=== PATIENT | female | born 1945 | race Caucasian/White ===

== ENCOUNTER 2018-10-11 03:29 | Observation (INO) ==
[2018-10-11] MEDS ORDERED: *HR* Dextrose 50 % in Water (Syg) 50 ML SYRINGE IVP PRN (05:57)
[2018-10-11] MEDS ORDERED: Ondansetron 4 MG/2 ML VIAL IVP PRN (05:57)
[2018-10-11] MEDS ORDERED: Naloxone 0.4 MG/ML INJ IVP PRN (05:57)
[2018-10-11] MEDS ORDERED: Dextrose Gel 15 GM/37.5 ML TUBE PO PRN ×2 (05:57)
[2018-10-11] MEDS ORDERED: D5% in Water 1,000 ML IVC PRN (05:57)
--- NOTE | 2018-10-11 06:10 | Internal Med History&Physical ---
Date of Encounter: 10/11/18 Time of Encounter: 06:03 Internal Medicine - H&P: HPI Chief complaint: vomiting/diarrhea/dehydration Admitted From: Hospital to Hospital Transfer Plans for Post Hospital Care: Home History of present illness: Ms. Cuevas is a 72 year old female who presents in transfer from [facility] ER with complaints of protracted nausea, vomiting, and diarrhea, with subsequent dehydration. Symptoms started 2 days ago and have persisted without relief. She has been unable to eat or drink much fluids. She has been feeling weak and crampy. She therefore presented to the ER there were she was diagnosed with gastroenteritis and dehydration. Flu test was negative. Routine labs unremarkable except for hypokalemia. Transfer request was made to [facility] and patient was accepted in transfer from [facility]. Upon my assessment of the patient when she arrived, she looks dry and mildly ill-appearing. She denies any fevers, cough, congestion, sore throat, abdominal pain, dysuria, or hematuria. She has had multiple ill contacts at home with loved ones who had similar symptoms. She denies bloody stools or black stools. Past Med Surg Social Fam HX - Past Medical History Attestation: Yes The following information was validated with the patient. Source: patient, other Medical history: diabetes Psychiatric history: no psych history - Past Surgical History Surgical History: cholecystectomy, ELISABET/BSO - Social History Smoking Status: Never smoker Alcohol use: none Current living situation: Home, With Family Activity Level: Independent ambulation - Family History Mother Living Status: Hx Family GI Disorders: No Father History Unknown: Yes Living Status: - Constitutional Constitutional: no chills, no fever(s), no night sweats - EENT Eyes: no blurry vision, no change in vision Ears: no ear pain, no tinnitus Nose, mouth and throat: no nasal discharge, no sinus pressure, no sore throat - Cardiovascular Cardiovascular ROS IM: no chest pain, no dyspnea, no dyspnea on exertion - Respiratory Respiratory: no cough, no chest congestion, no change in phlegm color - Gastrointestinal Gastrointestinal: diarrhea, heartburn, nausea, vomiting, no abdominal pain, no cramping, no hematemesis, no hematochezia, no melena - Genitourinary Genitourinary: no dysuria, no flank pain, no hematuria - Musculoskeletal Musculoskeletal ROS IM: no atrophy, no muscle weakness, no myalgias - Integumentary Integumentary IM: no rash, no jaundice - Neurological Neurological ROS: no disequilibrium, no dizziness, no focal weakness, no frequent falls, no headache(s) - Psychiatric Psychiatric: no anxiety, no depression - Endocrine Endocrine IM: no polydipsia, no polyuria - Allergic/Immunologic Allergic/Immunologic: GI upset with certain foods, no wheezing - Constitutional Vitals: Temp Pulse Resp BP Pulse Ox 98.6 F 110 16 169/77 94 10/11/18 05:38 10/11/18 05:38 10/11/18 05:38 10/11/18 05:38 10/11/18 05:38 General appearance: Present: cooperative, A&O X 3, pleasant, no acute distress, answers questions appropriately Exam: looks moderately dehydrated - Head Head exam: Present: normal inspection - Eye Eye exam: Present: EOMI, PERRL. Absent: scleral icterus Pupils: Present: normal accommodation - ENT ENT exam: Present: mucous membranes dry, normal exam, normal oropharynx - Neck Neck exam general surgery: Present: full ROM, supple. Absent: tenderness, nuchal rigidity, thyromegaly - Respiratory Respiratory exam: Present: CTAB. Absent: rales, respiratory distress, stridor, wheezes - Cardiovascular Cardiovascular exam: Present: distant heart sounds, +S1, +S2. Absent: diastolic murmur, systolic murmur - GI/Abdominal GI/Abdominal exam: Present: normal bowel sounds, soft. Absent: guarding, hepatomegaly, mass, rebound, splenomegaly, tenderness - Extremities Exam Extremities exam: Present: full ROM, normal capillary refill, warm, radial pulses palpable and symmetrical. Absent: calf tenderness, pedal edema, tenderness - Back Exam Back exam: Present: normal inspection. Absent: CVA tenderness (L), CVA tenderness (R) - Neurological Exam Neurological exam: Present: alert, CN II-XII intact, oriented X3, no focal deficits - Psychiatric Psychiatric exam: Present: normal affect, normal mood - Skin Skin exam: Present: dry, intact, warm Internal Med - H&P Results - Labs Labs: I reviewed her labs from [facility] and include the following: Sodium 142 Potassium 3.2 Chloride 102 Carbon dioxide 26 BUN 24 Creatinine 0.85 Lipase 154 WBC 13.9 Hemoglobin 12.8 Hematocrit 39.2 Platelet count 266 Influenza A and B testing negative Head CT negative Abdominal CT negative - Assessment and plan (1) Gastroenteritis Current Visit: Yes Status: Acute Assessment and plan: 1. Will hydrate with IVF. 2. Anti-emetics PRN. 3. If diarrhea persists, will order stool sample. (2) Dehydration Current Visit: Yes Status: Acute Assessment and plan: 1. IVF hydration with oral fluid challenge. 2. Advance diet as tolerated. 3. Monitor electrolytes and correct as necessary. (3) Type 2 diabetes mellitus Current Visit: Yes Status: Chronic Assessment and plan: 1. Will order SSI. 2. Hold oral home meds. 3. Monitor glucose and adjust dosing as necessary. Qualifiers: Diabetes mellitus accountant budget insulin use: without accountant budget use Diabetes mellitus complication status: without complication Qualified Code(s): E11.9 - Type 2 diabetes mellitus without complications (4) DVT prophylaxis Current Visit: Yes Status: Acute Assessment and plan: 1. Heparin SQ.
[2018-10-11 06:44] LABS: Basophils % 0.1 %; Eosinophils % 0.1 %; Hemoglobin 12.6 g/dL (11.5-15.4); Immature Granulocytes % 0.3 % (0-4); Lymphocytes # 0.7 K/mcL (0.6-4.6); Lymphocytes % 5.2 %; Mean Corpuscular HGB Conc 33.2 g/dL (31.6-35.5); Mean Corpuscular Hemoglobin 28.9 pg (28.0-33.3); Mean Corpuscular Volume 87.2 fL (83.0-100.0); Mean Platelet Volume 11.3 fL (9.4-12.4); Monocytes # 0.7 K/mcL (0.0-1.3); Monocytes % 5.4 %; Platelet Count 251 K/mcL (140-400); Red Blood Count 4.36 M/mcL (3.82-4.97); Red Cell Distribution Width 15.2 % (11.5-14.5); Segmented Neutrophils % 88.9 %
[2018-10-11 07:02] LABS: Alanine Aminotransferase 23 Units/L (7-52); Albumin 3.8 g/dL (3.5-5.7); Albumin/Globulin Ratio 1.4 (1.1-2.2); Alkaline Phosphatase 50 Units/L (34-104); Aspartate Amino Transferase 25 Units/L (13-39); BUN/Creatinine Ratio 33 (6-26); Blood Urea Nitrogen 21 mg/dL (8-23); Calcium 8.6 mg/dL (8.6-10.3); Carbon Dioxide 23 mEq/L (23-29); Chloride 104 mEq/L (98-107); Globulin 2.8 g/dL (2.4-3.5); Glucose 163 mg/dL (70-105); Magnesium 1.6 mg/dL (1.6-2.6); Osmolality,Calculated 293 (280-300); Potassium 3.6 mEq/L (3.5-5.1); Sodium 138 mEq/L (136-145); Total Protein 6.6 g/dL (6.4-8.9); eGFR For Non-African Americans > 60 (> 60)
[2018-10-11] MEDS: *HR* Heparin 5,000 UNIT/ML VIAL SQ SCH ×3 (07:33→21:32)
[2018-10-11] MEDS: 0.9 % Sodium Chloride w KCl 20 MEQ/1,000 ML MLS IVC SCH ×2 (07:34→15:32)
[2018-10-11] MEDS: Pantoprazole 40 MG VIAL IVP SCH ×2 (07:34→17:25)
[2018-10-11] MEDS: Insulin LISPRO 300 UNITS/3 ML VIAL SQ SCH ×3 (07:35→16:25)
[2018-10-11] MEDS: Acetaminophen 325 MG TABLET PO PRN (16:24)
[2018-10-11] MEDS ORDERED: Loratadine 10 MG TABLET PO PRN (17:07)
[2018-10-11] MEDS: Diltiazem CD (24hr) 180 MG CAPSULE PO SCH (21:32)
[2018-10-12] MEDS: *HR* Heparin 5,000 UNIT/ML VIAL SQ SCH ×2 (05:29→13:18)
[2018-10-12] MEDS: Acetaminophen 325 MG TABLET PO PRN (05:29)
[2018-10-12] MEDS: Insulin LISPRO 300 UNITS/3 ML VIAL SQ SCH ×2 (07:35→12:10)
[2018-10-12] MEDS: Diltiazem CD (24hr) 180 MG CAPSULE PO SCH (07:39)
[2018-10-12] MEDS ORDERED: *HR* Metformin 500 MG TABLET PO SCH (08:00)
[2018-10-12 11:26] VITALS: BP 158/79
--- NOTE | 2018-10-12 14:15 | Discharge Summary ---
Date of Encounter: 10/12/18 Time of Encounter: 14:10 - Discharge Diagnosis (1) Gastroenteritis Priority: Primary Status: Acute (2) Dehydration Priority: Primary Status: Resolved (3) Type 2 diabetes mellitus Priority: Secondary Status: Chronic Qualifiers: Diabetes mellitus terminal carman insulin use: without terminal carman use Diabetes mellitus complication status: without complication Qualified Code(s): E11.9 - Type 2 diabetes mellitus without complications Hospital course: Ms. Cuevas is a 73 year old female Discharge discussed with: patient, case management - Time Spent with Patient Total time spent providing and/or coordinating discharge services: Greater than 30 minutes (35 minutes..) - Discharge Medications Home Medications: Aspirin [Adult Aspirin Regimen] 81 mg PO DAILY 10/11/18 [History] Cetirizine HCl [24Hour Allergy] 10 mg PO DAILY 10/11/18 [History] Diltiazem HCl [Diltiazem 24Hr Cd] 180 mg PO DAILY 10/11/18 [History] Lisinopril [Zestril] 10 mg PO DAILY 10/11/18 [History] Meclizine HCl [Verticalm] 25 mg PO Q8H PRN 10/11/18 [History] Omeprazole [PriLOSEC] 40 mg PO DAILY PRN 10/11/18 [History] Potassium Chloride [K-Tab ER] 10 meq PO DAILY 10/11/18 [History] Pravastatin Sodium [Pravachol] 20 mg PO HS 10/11/18 [History] diazePAM [Valium] 10 mg PO TID PRN 10/11/18 [History] metFORMIN [Glucophage] 1,000 mg PO QPM 10/11/18 [History] metFORMIN [Glucophage] 500 mg PO QAM 10/11/18 [History] Allergies/Adverse Reactions: Allergy/AdvReac Type Severity Reaction Status Date / Time Iodinated Contrast- Oral and Allergy Hives Verified 10/11/18 17:03 IV Dye codeine AdvReac Gastrointestinal Verified 10/11/18 17:03 Upset promethazine [From Phenergan] AdvReac Gastrointestinal Verified 10/11/18 17:03 Upset [place] Allergy Hives Uncoded 10/11/18 17:03 Date of admission: 10/11/18 05:06 Primary care physician: Bruno Carranza Discharging clinician: Bruce Castellano Anticipated date of discharge: 10/12/18 - Constitutional Vitals: Temp Pulse Resp BP Pulse Ox 98.2 F 76 16 158/79 94 10/12/18 11:12 10/12/18 11:12 10/12/18 11:12 10/12/18 11:12 10/12/18 11:12 General appearance: Present: cooperative, A&O X 3, pleasant, no acute distress, answers questions appropriately Exam: xx - Patient Status Disposition: Home, Self-Care Condition: Good Functional capacity at discharge: independent ambulation Overall status at discharge: patient is back to baseline - Discharge Instructions Follow Up With: Bruno Carranza DO [Primary Care Provider] - - Diet and Activity Activity: resume usual activities as tolerated Diet: diabetic diet - VTE Reasons for not Prescribing Prophylaxis: Treatment not Indicated - Low risk for VTE Deep Vein Thrombosis/Pulmonary Embolism Present on Admission: No
== END 2018-10-12 16:57 | disposition home or self-care (01) ==
LOC: 3ANU → SUATTDRO 05:06
PROVIDERS: ADMIT Internal Medicine; ATTEND Internal Medicine